=== PATIENT | male | born 1960 | race Caucasian/White ===

== ENCOUNTER → 2017-09-14 | Outpatient (CLI) | payer MEDICARE ==
[2015-10-28 12:43] VITALS: BMI 33.2
[~2017-09-14] MED LIST: AMLO2.5T75 PO; ASPI-1441 PO; ASPI-715 PO; CIT20 PO; CYCL10TA29 PO; DIA10 PO; DIA5 PO; DIAZ-308 PO; DOCU-416 PO; FLUO-202 PO; FLUO40CA76 PO; GABA-549 PO; HYDR12.558 PO; HYDR2TAB74 PO; LOR5/325 PO; METF-410 PO; METH-543 PO; METH4TAB66 PO; METO25TA93 PO; NO MEDS; ONDA4TAB PO; OXYC-373 PO; OXYC-865 PO; OXYC20TA86 PO; PER PO; PRAZ1CAP26 PO; PRO25 PO; PROM-110 PO; SERT-179 PO; SIMV10TA96 PO; TRAZ-133 PO; ZOLP-350 PO
--- NOTE | 2017-09-14 14:40 | RADIOLOGY IMAGING REPORT ---
FACILITY: [facility] PATIENT NAME: Ciro Manrique : 1960 MR: [id number] V: [id number] EXAM DATE: ORDERING PHYSICIAN: HARMONY HENDRICKSON TECHNOLOGIST: Location: [facility] Patient: Ciro Manrique : 1960 Visit/Account:[id number] Date of Sevice: 09/14/2017 EXAMINATION: CT head without IV contrast HISTORY: Blurry vision, headache, neck pain. COMPARISON: CT head from 05/28/2017. TECHNIQUE: Contiguous axial images were obtained from the skull base to the vertex without intraven ous contrast. Sagittal and coronal reformatted images are also submitted. One of the following dose optimization techniques was utilized in the performance of this exam: Autom ated exposure control; adjustment of the mA and/or kV according to the patient's size; or use of an i terative reconstruction technique. Specific details can be referenced in the facility's radiology C T exam operational policy. FINDINGS: Brain volume: Normal. Ventricles: Normal. Acute ischemic changes: None. Hemorrhage: No acute intracranial hemorrhage. Masses/edema: None. Escalante-white: Negative. White matter: Normal. Vessels: Calcified plaque of both carotid siphons. Extra-axial: Negative. Calvarium/scalp: Negative. Skull base/visualized face: Negative. Visualized sinuses/orbits: Negative. IMPRESSION: No intracranial mass lesion or hemorrhage. No CT evidence of acute infarct. Report Dictated By: Cassandra Hernandez MD at 09/14/2017 2:33 PM Report E-Signed By: Cassandra Hernandez MD at 09/14/2017 2:35 PM WSN:[id number]
--- NOTE | 2017-09-14 14:53 | RADIOLOGY IMAGING REPORT ---
FACILITY: [facility] PATIENT NAME: Ciro Manrique : 1960 MR: [id number] V: [id number] EXAM DATE: ORDERING PHYSICIAN: HARMONY HENDRICKSON TECHNOLOGIST: Location: [facility] [place] Patient: Ciro Manrique : 1960 Visit/Account:[id number] Date of Sevice: 09/14/2017 Exam type: CERVICAL SPINE 2 OR 3 VIEW History: Headache and neck pain x3 years Comparison: CT service spine December 20, 2015 Findings: C1 through C7 are identified with no evidence of acute fractures or subluxations. There is mild disc space narrowing at C5-6 and moderate to severe disc space narrowing at C6-7.. No evidence of prever tebral soft tissue swelling. Incidentally noted are calcifications in both sides of the neck, right side greater than left which are likely vascular in etiology IMPRESSION: 1. Mild disc space narrowing C5-6 and moderate to severe disc space narrowing C6-7 Calcifications are identified in both sides of the neck, right greater than left which are likely vas cular in etiology Report Dictated By: Raisa Thomas MD at 09/14/2017 2:44 PM Report E-Signed By: Raisa Thomas MD at 09/14/2017 2:47 PM WSN:[email or web address]
== END ==
LOC: CT 02:21
PROVIDERS: ATTEND Family Medicine
DX: H53.8 Other visual disturbances (principal); R51 Headache; M54.2 Cervicalgia
CPT/HCPCS: 70450; 72040

== ENCOUNTER → 2017-10-31 | Outpatient (CLI) | payer MEDICARE ==
[2015-10-28 12:43] VITALS: BMI 33.2
== END ==
LOC: LAB 14:13
PROVIDERS: ATTEND Family Medicine
DX: I10 Essential (primary) hypertension (principal); E78.5 Hyperlipidemia, unspecified; E11.65 Type 2 diabetes mellitus with hyperglycemia; R53.83 Other fatigue
CPT/HCPCS: 36415; 82040; 82247; 82310; 82374; 82435; 82565; 82947; 83036; 84075; 84132; 84155; 84295; 84443; 84450; 84460; 84520; 85027

== ENCOUNTER → 2017-11-09 | Outpatient (CLI) | payer MEDICARE ==
[2015-10-28 12:43] VITALS: BMI 33.2
[~2017-11-09] MED LIST changes: +IOPAMIDOL 76% 75 ML INFUS BTL 75 ML ONE
--- NOTE | 2017-11-09 14:13 | RADIOLOGY IMAGING REPORT ---
FACILITY: [facility] [place] PATIENT NAME: Ciro Manrique : 1960 MR: [id number] V: [id number] EXAM DATE: ORDERING PHYSICIAN: HARMONY HENDRICKSON TECHNOLOGIST: Location: [facility] [place] Patient: Ciro Manrique : 1960 Visit/Account:[id number] Date of Sevice: 11/09/2017 ABDOMEN/PELVIS WITH CONTRAST HISTORY: Right lower quadrant pain radiating posteriorly. Change in bowel movements, diabetic with elevated urine glucose levels TECHNIQUE: Following administration of IV contrast contiguous axial images acquired through the abdom en/pelvis. Coronal and sagittal reformatting also performed. CONTRAST: 75 mL Isovue-[id number] COMPARISON: CT abdomen pelvis March 08, 2016 FINDINGS: Visualized lung bases: There are two noncalcified pulmonary nodules in the anterior aspect right mid dle lobe largest measuring approximately 5 mm in diameter and appear unchanged when compared to the p rior CT was likely due to the difference in imaging technique. There is a small amount linear scarri ng also noted in the lower lobes. Hepatobiliary: There is hepatomegaly and diffuse hepatic steatosis Spleen: Negative. Adrenals: Negative. Pancreas: Negative. Kidneys ureters or bladder: There are subcentimeter hypodensities in both kidneys that are too small to characterize Genitalia: There are calcifications in the vas deferens bilaterally which can be seen with diabetes GI: There is diverticulosis left-sided colon although no CT evidence of acute diverticulitis. The a ppendix is visualized and does not appear inflamed Vessels/spaces/nodes: There shotty retroperitoneal lymph nodes. There are mild to moderate vascular calcifications throughout the abdomen and pelvis Bones/soft tissues: There are postsurgical changes from posterior lumbar interbody fusion of the low er lumbosacral spine Additional findings: None pertinent. IMPRESSION: There are two stable noncalcified pulmonary nodules in the right middle lobe Hepatomegaly with diffuse hepatic steatosis There are subcentimeter hypodensities in both kidneys that are too small to characterize. This could be further evaluated with ultrasound if of concern Diverticulosis left-sided colon although no CT evidence of acute diverticulitis The appendix is visualized and does not appear inflamed Additional chronic findings as described Report Dictated By: Raisa Thomas MD at 11/09/2017 1:03 PM Report E-Signed By: Raisa Thomas MD at 11/09/2017 2:09 PM WSN:[id number]
== END ==
LOC: CT 01:05
PROVIDERS: ATTEND Family Medicine
DX: N50.89 Other specified disorders of the male genital organs (principal); K57.30 Diverticulosis of large intestine without perforation or abscess without bleeding; I25.10 Atherosclerotic heart disease of native coronary artery without angina pectoris; Z98.890 Other specified postprocedural states; R91.8 Other nonspecific abnormal finding of lung field; K76.89 Other specified diseases of liver
CPT/HCPCS: 74177; Q9967

== ENCOUNTER → 2018-04-11 | Outpatient (CLI) | payer MEDICARE ==
[2015-10-28 12:43] VITALS: BMI 33.2
[~2018-04-11] MED LIST changes: -IOPAMIDOL 76% 75 ML INFUS BTL 75 ML ONE; -METF-410 PO; +METF-411 PO
[2018-04-11 11:12] LABS: LDL CHOLESTEROL 78 mg/dl
== END ==
LOC: LAB 09:44
PROVIDERS: ATTEND Family Medicine
DX: I10 Essential (primary) hypertension (principal); E78.5 Hyperlipidemia, unspecified; E11.65 Type 2 diabetes mellitus with hyperglycemia
CPT/HCPCS: 36415; 82043; 83036; G0103; 82040; 82247; 82310; 82374; 82435; 82465; 82565; 82947; 83718; 84075; 84132; 84153; 84155; 84295; 84450; 84460; 84478; 84520

== ENCOUNTER → 2018-06-07 | Outpatient (CLI) | payer MEDICARE, OTHER ==
[2015-10-28 12:43] VITALS: BMI 33.2
[~2018-06-07] MED LIST changes: -METF-411 PO; +METF-450 PO
--- NOTE | 2018-06-07 14:30 | RADIOLOGY IMAGING REPORT ---
FACILITY: [facility] PATIENT NAME: Ciro Manrique : 1960 MR: [id number] V: [id number] EXAM DATE: ORDERING PHYSICIAN: OZ SEWELL TECHNOLOGIST: Location: [facility] Patient: Ciro Manrique : 1960 Visit/Account:[id number] Date of Sevice: 06/07/2018 EXAMINATION: CT lumbar spine without IV contrast HISTORY: Low back pain. COMPARISON: MRI of the lumbar spine dated 07/16/2015 from [facility] TECHNIQUE: Axial images were obtained through the lumbar spine without IV contrast administration. C oronal and sagittal reformatted images were obtained from the axial source data. One of the following dose optimization techniques was utilized in the performance of this exam: Autom ated exposure control; adjustment of the mA and/or kV according to the patient's size; or use of an i terative reconstruction technique. Specific details can be referenced in the facility's radiology C T exam operational policy. FINDINGS: Alignment: Normal. Vertebral bodies: Negative. Posterior elements: Bilateral L4 and L5 laminectomies. There is bony fusion across the L4-5 and L5-S 1 facets. Hardware: There is posterior lumbar interbody fusion hardware at L3-4, and interbody fusion devices a t L4-5 and L5-S1. Bilateral transpedicular screws remain at S1. Abandoned screw tracks in the L5 ve rtebra. The hardware is similar in position to previous CT. There is slight lucency around the left transpedicular screw at L3 which is new. There is bony fusion across the L4-5 disc space, with some residual lucency at the L3-4 and L5-S1 disc spaces. Disc spaces: There is a mild disc bulge at L2-3. No focal disc herniation visualized by CT. Soft tissues: Negative. Visualized retroperitoneal/abdominal structures: Fatty liver partly visualized. There is severe athe rosclerotic calcifications. IMPRESSION: 1. Posterior lumbar interbody fusion from L3 through S1 with posterior decompression at L4-5 and L5- S1. Lucency around the left L3 transpedicular screw is new, and is concerning for loosening. No oth er evidence of hardware loosening. 2. Mild disc bulge at L2-3. Report Dictated By: Cassandra Hernandez MD at 06/07/2018 2:18 PM Report E-Signed By: Cassandra Hernandez MD at 06/07/2018 2:26 PM WSN:[id number]
== END ==
LOC: CT 00:31
PROVIDERS: ATTEND Orthopaedic Surgery
DX: K76.0 Fatty (change of) liver, not elsewhere classified (principal); Z96.7 Presence of other bone and tendon implants; M51.86 Other intervertebral disc disorders, lumbar region; I25.10 Atherosclerotic heart disease of native coronary artery without angina pectoris
CPT/HCPCS: 72131

== ENCOUNTER → 2018-06-25 | Outpatient (CLI) | payer OTHER, MEDICARE ==
[2015-10-28 12:43] VITALS: BMI 33.2
[2018-06-25 09:27] LABS: PLATELET COUNT, AUTOMATED 231 K/uL (150-450)
--- NOTE | 2018-06-25 09:32 | EKG ---
FACILITY: [facility] [place] PATIENT NAME: COLE JEAN BAPTISTE : [id number] MR: [id number] V: [id number] EXAM DATE: ORDERING PHYSICIAN: OZ SEWELL TECHNOLOGIST: AGA [place] Reason : PRE-OP Blood Pressure : / mmHG Vent. Rate : 077 BPM Atrial Rate : 077 BPM P-R Int : 172 ms QRS Dur : 086 ms QT Int : 382 ms P-R-T Axes : 064 055 064 degrees QTc Int : 432 ms Normal sinus rhythm Normal ECG When compared with ECG of 28-MAY-2017 15:01, No significant change was found Confirmed by JAX TEJEDA ([id number]) on 06/25/2018 10:13:01 AM Referred By: DONATO Confirmed By:JAX TEJEDA
== END ==
LOC: LAB 09:10
PROVIDERS: ATTEND Orthopaedic Surgery
DX: Z01.812 Encounter for preprocedural laboratory examination (principal); F33.9 Major depressive disorder, recurrent, unspecified; I10 Essential (primary) hypertension; G47.33 Obstructive sleep apnea (adult) (pediatric); Z99.81 Dependence on supplemental oxygen; E78.5 Hyperlipidemia, unspecified; K21.9 Gastro-esophageal reflux disease without esophagitis
CPT/HCPCS: 36415; 82040; 82247; 82310; 82374; 82435; 82565; 82947; 83036; 84075; 84132; 84155; 84295; 84450; 84460; 84520; 85025; 93005

== ENCOUNTER → 2018-07-09 | Outpatient (CLI) | payer OTHER, MEDICARE ==
[2015-10-28 12:43] VITALS: BMI 33.2
== END ==
LOC: LAB 10:03
PROVIDERS: ATTEND Family Medicine
DX: E11.65 Type 2 diabetes mellitus with hyperglycemia (principal)
CPT/HCPCS: 36415; 82947

== ENCOUNTER 2018-07-23 00:23 | Inpatient (IN) | payer MEDICARE, OTHER ==
[~2018-07-23] VITALS: Ht 188 cm; Wt 115.7 kg
[~2018-07-23 00:23] MED LIST changes: +METF500T4 PO; +SITA100T PO
[2018-07-23 05:20] VITALS: BP 143/89
[2018-07-23] MEDS ORDERED: METOPROLOL TART 50 MG TAB PO ONE (05:48)
[2018-07-23] MEDS ORDERED: ACETAMINOPHEN 500 MG TAB PO ONE (06:00)
[2018-07-23] MEDS ORDERED: CLINDAMYCIN(*) 900 MG/NS 50 ML 50 ML IVPB ONE (06:00)
[2018-07-23] MEDS ORDERED: MIDAZOLAM 2 MG/2 ML VIAL IVP PRN (06:00)
[2018-07-23] MEDS ORDERED: FAMOTIDINE 20 MG TAB PO ONE (06:00)
[2018-07-23] MEDS ORDERED: PREGABALIN 150 MG CAPSULE PO ONE (06:00)
[2018-07-23] MEDS ORDERED: LIDOCAINE/SOD BICARB 8.4% SYR ID ONE (06:00)
[2018-07-23] MEDS ORDERED: NORMOSOL R SOLN(*) 1000 ML BAG 1,000 ML IV PRN (06:00)
[2018-07-23] MEDS ORDERED: ROPIVACAINE 0.2% 20 ML VIAL ONE (06:27)
[2018-07-23] MEDS ORDERED: THROMBIN (BOVINE) 20,000 UNIT VIAL ONE (06:27)
[2018-07-23] MEDS ORDERED: INSULIN HUM REG 100 UN/ML 3 ML VIAL SC ONE ×2 (06:55→10:05)
[2018-07-23] MEDS ORDERED: REMIFENTANIL HCL 1 MG VIAL ONE (06:55)
[2018-07-23] MEDS ORDERED: ROCURONIUM BROM 10 MG/ML 10 ML ONE (07:24)
[2018-07-23] MEDS ORDERED: SUGAMMADEX SOD 500 MG/5 ML SDV ONE (07:41)
[2018-07-23] MEDS ORDERED: HYDROmorphone HCL 2 MG/ML SDV ONE ×2 (08:21→10:09)
[2018-07-23] MEDS ORDERED: PROPOFOL EMUL(*) 10MG/ML 20 ML 160 ML ONE (08:53)
[2018-07-23] MEDS ORDERED: ONDANSETRON 4 MG/2 ML VIAL ONE (08:53)
[2018-07-23] MEDS ORDERED: METOPROLOL TART 5 MG/5 ML VIAL ONE (08:54)
--- NOTE | 2018-07-23 09:38 | RADIOLOGY IMAGING REPORT ---
FACILITY: [facility] [place] PATIENT NAME: Ciro Manrique : 1960 MR: [id number] V: [id number] EXAM DATE: ORDERING PHYSICIAN: OZ SEWELL TECHNOLOGIST: Location: [facility] [place] Patient: Ciro Manrique : 1960 Visit/Account:[id number] Date of Sevice: 07/23/2018 LUMBAR SPINE 1 VIEW HISTORY: L3-4 REVISION PLIF WITH HARDWARE REMOVAL COMPARISON: CT examination from June 07. FINDINGS: Anatomic alignment status post fusion hardware posteriorly at L3-L4. Spacers are noted at L3-L4, L4- L5 and L5-S1. Previous sequelae of effusion through S1. Screws remain in S1 vertebra. No evidence of hardware competition or acute bony finding. IMPRESSION: Appropriate appearance fusion hardware status post posterior fusion L3-L4. No evidence of acute osse ous finding or hardware convocation. Stable sequelae of old lumbosacral fusion. Report Dictated By: Kirk Mckeon MD at 07/23/2018 9:30 AM Report E-Signed By: Kirk Mckeon MD at 07/23/2018 9:33 AM WSN:[id number]
[2018-07-23] MEDS ORDERED: LR(*) 1000 ML BAG 1,000 ML IV PRN (09:45)
[2018-07-23] MEDS ORDERED: diphenhydrAMINE 25 MG CAP PO PRN (09:45)
[2018-07-23] MEDS ORDERED: ACETAMINOPHEN 500 MG TAB PO PRN (09:45)
[2018-07-23] MEDS ORDERED: BENZOCAINE/MENTHOL 1 EACH LOZG PO PRN (09:45)
[2018-07-23] MEDS ORDERED: ACETAMINOPHEN(*)1000 MG/100 ML 100 ML IVPB PRN (09:45)
[2018-07-23] MEDS ORDERED: BISACODYL 10 MG SUPP PR PRN (09:45)
[2018-07-23] MEDS ORDERED: FLUSH 10 ML SYR IVP PRN (09:45)
[2018-07-23] MEDS ORDERED: ONDANSETRON 4 MG/2 ML VIAL IVP PRN (09:45)
[2018-07-23] MEDS ORDERED: MAGNESIUM HYDROXIDE* 30ML UDCP PO PRN (09:45)
[2018-07-23] MEDS ORDERED: fentaNYL CITR 100 MCG/2 ML AMP ONE (09:46)
[2018-07-23] MEDS: HYDROmorphone HCL 2 MG/ML SDV IVP PRN ×3 (10:17→19:09)
--- NOTE | 2018-07-23 10:28 | OPERATIVE REPORT 1 ---
EVENT DATE: July 23, 2018 SURGEON: Xu Smith MD ANESTHESIOLOGIST: Chacho Miller M.D. ANESTHESIA: General endotracheal anesthesia. SAMPLE DISPLAY PREPARER: Umang Delgado PA-C PREOPERATIVE DIAGNOSIS L3-L4 fusion nonunion. POSTOPERATIVE DIAGNOSIS L3-L4 fusion nonunion. PROCEDURE PERFORMED Revision L3-L4 posterior lateral instrumented fusion with exploration of fusion mass and placement of pedicle screw construct. INTRAVENOUS FLUIDS 1350 mL ESTIMATED BLOOD LOSS 120 mL IMPLANTS USED 1. 7.5 mm x 45 mm Reline pedicle screws from [employer] x4. 2. 5 mm x 40 mm connecting rods from [employer] x2. 3. Locking caps from [employer] x4. SPECIMENS None. DRAINS None. COMPLICATIONS None. DISPOSITION Post-Anesthesia Care Unit. INDICATIONS FOR SURGERY Mr. Manrique is a 58-year-old gentleman who about two years ago underwent an L3- L4 minimally invasive lateral fusion with percutaneous pedicle screw placement performed by Dr. Rooney. He initially did well after that surgery but then began experiencing progressively worsening lower back pain but really not much radiating leg symptoms. He presented to my clinic with these symptoms and we reviewed x-rays that showed some lucency at the L3-L4 level, suggestive of a nonunion. We, therefore, went ahead and sent him for a CT scan, which did not show more than one successive cut on coronal or sagittal images with bridging trabeculi. 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 He had failed nonsurgical care and, therefore, wished to proceed with surgery. Prior to surgery, I explained in detail to the patient the possible risks of surgery. These risks include bleeding, infection, damage to surrounding structures, nerve root injury, spinal fluid leak, meningitis, persistent and/or worsening pain, need for further surgery, , blindness, sexual dysfunction, autonomic nervous system dysfunction and other unforeseen medical and surgical complications. An understanding that spinal surgery is more predictive at improving extremity discomfort than axial spine pain was stressed. Further discussion was had regarding the revision nature of the procedure. I explained to Mr. Manrique that all pertinent risks are higher given the presence of scar tissue including bleeding, infection, etc. We also discussed the fact that revision surgery is very rarely as reliable at achieving expected outcomes as initial surgery. DESCRIPTION OF PROCEDURE On the date of surgery, the patient was met in the preoperative hold area and all questions were answered. The operative site was identified and marked by myself. The patient was brought in good condition to the operating room and after succumbing to anesthesia was positioned in the prone position on a Fermin table. All bony protuberances and soft tissues were well padded in the standard fashion. Care was taken to maintain appropriate perfusion pressures during anesthesia. Preoperative antibiotics were administered according to the appropriate timing schedule. At the conclusion of the procedure, sponge and needle counts were correct x2. A final time-out was undertaken by members of the operating team to confirm correct patient, correct levels and correct surgery. The patient was then prepped and draped in the standard sterile orthopedic fashion a midline incision was made over intended surgical levels. Sharp dissection was carried out down to the posterior elements and soft tissue were elevated off the posterior elements in a subperiosteal manner. We worked our way out laterally to expose the pedicle screw construct on both sides. Self-retaining retractors were placed and then the appropriate instrumentation was used to remove first the caps, then the rods and finally the screws bilaterally at L3 and L4. We were then able to expose out to the tips of the transverse processes bilaterally at L3 and L4. New screws, size 7.5 x 44 mm, were placed in all four pedicles. 40 mm rods were selected and placed within the tulips and then locking caps were placed and tightened in the L3 screws. The wound was then irrigated with 2- liter of sterile saline solution and I then used a high-speed bur to decorticate the previously exposed transverse processes of L3 and L4 bilaterally as well as to drill down within the L3-L4 face bilaterally. We then packed a combination of demineralized bone matrix and cancellous chips into those lateral gutters overlying the transverse processes as well as overlying and within the facet joints. Of note, prior to placement of grafting material, I did explore the fusion mass and I was able to detect movement at that L3-L4 level. Once we had packed all of the bone graft in place within the facet joints as well as in the lateral gutters, we loosened the cap from the L4 screw and used the compression device to compress across the construct. The final cloth examiner was then used to torque all of the caps the appropriate torque pressure. The wound was then closed in layers using interrupted sutures for the deep fascia, inverted interrupted sutures for the subcutaneous tissue and then a running subcutaneous skin stitch. Sponge and needle counts were correct x2. Electrophysiologic monitoring was used during the case and it was used to test the screws once they were replaced and they all tested greater than 30 milliamps. POSTOPERATIVE CARE PLAN Mr. Manrique will remain in the hospital until he meets discharge criteria. He will be discharged home with instructions to follow up in two weeks or so for a wound check and examination. THONG
[2018-07-23 11:15] VITALS: BP 151/80
[2018-07-23] MEDS ORDERED: HYDR-2966 PO (11:27)
[2018-07-23] MEDS ORDERED: SIMV5TAB60 PO (11:27)
[2018-07-23] MEDS ORDERED: GABA-549 PO (11:27)
[2018-07-23] MEDS ORDERED: METO50TA19 PO (11:27)
[2018-07-23] MEDS ORDERED: METF-452 PO (11:27)
[2018-07-23 11:30] VITALS: BP 144/90
[2018-07-23] MEDS: oxyCODONE HCL 5 MG CAP PO PRN ×2 (11:37→20:44)
--- NOTE | 2018-07-23 11:58 | Hospitalist Consultation ---
History of Present Illness Requesting Physician Dr. Smith Reason for Consult Medical Management Chief Complaint s/p lumbar fusion History of Present Illness He was admitted s/p lumbar fusion. It is reported the surgery went well and without complication. History Problems: (1) Hypertension Status: Chronic (2) Depression Status: Chronic (3) Hyperlipidemia Status: Chronic (4) Type II diabetes mellitus Status: Chronic Home Meds Active Scripts Hydrocodone Bit/Acetaminophen (HYDROCODON-ACETAMINOPHEN 5-325) 1 Each Tablet, 1 EACH PO Q4-6H for PAIN, #10 TAB Prov:TANIKA GUZMÁN DO 03/08/16 Reported Medications Gabapentin (GABAPENTIN) 300 Mg Capsule, 300 MG PO TID, CAPSULE 07/23/18 Metoprolol Succinate (METOPROLOL SUCCINATE) 50 Mg Tab.er.24h, 1 TAB PO QDAY, TAB 07/23/18 Metformin Hcl (METFORMIN HCL) 1,000 Mg Tablet, 1 TAB PO BID, TAB 07/23/18 Simvastatin (SIMVASTATIN) 5 Mg Tablet, 5 MG PO QDAY, TAB 07/23/18 Hydrochlorothiazide (HYDROCHLOROTHIAZIDE) 25 Mg Tablet, 1 TAB PO QDAY, TAB 07/23/18 Sitagliptin Phosphate (JANUVIA) 100 Mg Tablet, 100 MG PO QDAY 07/16/18 Fluoxetine Hcl (PROZAC) 20 Mg Capsule, 60 MG PO QDAY, CAPSULE 07/14/15 Trazodone Hcl (Trazodone Hcl) 100 Mg Tablet, 500 MG PO QPM 09/24/12 Discontinued Reported Medications Metformin Hcl (METFORMIN HCL ER) 500 Mg Tab.er.24, 250 MG PO BID, TAB 07/16/18 Simvastatin (ZOCOR) 10 Mg Tablet, 10 MG PO HS, TAB 05/28/17 Hydrochlorothiazide (Hydrochlorothiazide) 12.5 Mg Capsule, 25 MG PO DAILY 11/30/11 Metoprolol Tartrate (Metoprolol Tartrate) 25 Mg Tablet, 50 MG PO QDAY 11/30/11 Promethazine Hcl (PROMETHAZINE HCL) 25 Mg Tablet, 25 MG PO Q6H, TAB 05/28/17 Diazepam (DIAZEPAM) 5 Mg Tablet, 5 MG PO HS, #40 TAB 10/29/15 Metformin Hcl (METFORMIN HCL) 500 Mg Tablet, 250 TAB PO QDAY, TAB 10/20/15 Discontinued Scripts Methocarbamol (ROBAXIN-750) 750 Mg Tablet, 1 TAB PO TID for muscle spasm relief, #20 Prov:JESSE GARZON DO 11/19/16 Cyclobenzaprine Hcl (CYCLOBENZAPRINE HCL) 10 Mg Tablet, 10 MG PO TID for Muscle Relaxant, #21 TAB Prov:TANIKA GUZMÁN DO 03/08/16 Cyclobenzaprine Hcl (CYCLOBENZAPRINE HCL) 10 Mg Tablet, 10 MG PO TID PRN for MUSCLE SPASMS, #30 TAB Prov:GRACIELA MORENO INJECTION SPECIALIST 09/22/15 Allergies: Coded Allergies: Penicillins (Verified Allergy, Mild, 11/18/16) Patient History: Cardiac arrest FATHER, FH: Alzheimers disease MOTHER, FH: stroke BROTHER OR SISTER Hx Smoking: Yes (QUIT 10/2009) Smoking Status: Former Smoker Caffeine Intake: Coffee, Soda Caffeine/Cups Per Day: 1 CUP WEEKLY, SODA OCC Hx Alcohol Use: No Hx Substance Use Disorder: No (ALCOHOL, TOBACCO) Social Drug Use: Never History of IV Drug Use: No Review of Systems All Systems Reviewed/Normal: Yes, Except as Noted Musculoskeletal: Pain (low back pain) Exam Vital Signs Vital Signs Date Time Temp Pulse Resp B/P (MAP) Pulse Ox O2 Delivery O2 Flow Rate FiO2 07/23/18 11:30 82 144/90 (108) 91 07/23/18 11:11 Nasal Cannula 1.0 07/23/18 11:05 98.4 16 General Appearance: Alert, Awake, No Acute Distress, Afebrile Neuro: No Gross deficits Cardiovascular: Regular Rate and Rhythm Respiratory: No Respiratory Distress, Clear to Auscultation Psych: Alert & Oriented X3, Appropriate Mood & Affect Assessment and Plan Problems: (1) S/P lumbar fusion Status: Acute Assessment & Plan: Followed by Dr. Smith (2) Hypertension Status: Chronic Assessment & Plan: He is on chronic treatment with Metoprolol Succinate and Hydrochlorothiazide. These have been restarted with hold parameters. (3) Type II diabetes mellitus Status: Chronic Assessment & Plan: He is on chronic treatment with Metformin and Januvia. These medications will resume tomorrow when he resume his usual diet. He will be covered with SS insulin #2, AC/HS blood glucose checks and ADA diet. (4) Hyperlipidemia Status: Chronic Assessment & Plan: He is on chronic treatment with Simvastatin. (5) Depression Status: Chronic Assessment & Plan: He is on chronic treatment with Fluoxetine and Trazodone. Venous Thromboembolism Antithrombotics Is Pt On Any Antithrombotics?: No Prophylaxis Tx Contraindicated Pharmacological Contraindicati: Surgical Contraindication Exam Sepsis Risk: No Definite Risk Problem Qualifiers (1) Hypertension: Hypertension type: essential hypertension Qualified Codes: I10 - Essential (primary) hypertension RON SONG INJECTION SPECIALIST Jul 23, 2018 11:58
[2018-07-23] MEDS: GABAPENTIN 300 MG CAP PO SCH ×2 (14:24→20:44)
[2018-07-23] MEDS: DIAZEPAM 5 MG TAB PO PRN (16:21)
[2018-07-23] MEDS: CLINDAMYCIN 900 MG/D5W 50 ML 50 ML IVPB SCH (16:56)
[2018-07-23] MEDS: APAP/HYDROCODONE 325/5 TAB PO PRN ×2 (17:15→21:33)
[2018-07-23] MEDS: INSULIN HUM LISPRO 100 UN/ML 3 ML VIAL SUBQ PRN ×2 (17:15→20:47)
[2018-07-23 19:28] VITALS: BP 131/96
[2018-07-23] MEDS: DOCUSATE SODIUM 100 MG CAP PO SCH (20:44)
[2018-07-23] MEDS ORDERED: traZODone HCL 50 MG TAB PO SCH (21:00)
[2018-07-24] MEDS: oxyCODONE HCL 5 MG CAP PO PRN ×4 (00:40→12:39)
[2018-07-24] MEDS: CLINDAMYCIN 900 MG/D5W 50 ML 50 ML IVPB SCH ×2 (00:40→08:58)
[2018-07-24] MEDS: DIAZEPAM 5 MG TAB PO PRN ×2 (00:40→06:38)
[2018-07-24 00:44] VITALS: BP 113/63
[2018-07-24] MEDS: APAP/HYDROCODONE 325/5 TAB PO PRN ×2 (04:20→10:57)
[2018-07-24 04:25] VITALS: BP 147/82
[2018-07-24 06:55] VITALS: BP 140/80
[2018-07-24] MEDS: INSULIN HUM LISPRO 100 UN/ML 3 ML VIAL SUBQ PRN ×2 (08:04→11:59)
[2018-07-24] MEDS: DOCUSATE SODIUM 100 MG CAP PO SCH (08:56)
[2018-07-24] MEDS: GABAPENTIN 300 MG CAP PO SCH ×2 (08:57→14:36)
[2018-07-24] MEDS ORDERED: FLUoxetine HCL 20 MG CAP PO SCH (09:00)
[2018-07-24] MEDS ORDERED: METOPROLOL SUCC XL 50 MG TABCR 50 MG TAB.ER.24H PO SCH (09:00)
[2018-07-24] MEDS ORDERED: HYDROCHLOROTHIAZIDE 25 MG TAB PO SCH (09:00)
[2018-07-24] MEDS ORDERED: metFORMIN HCL 500 MG TAB PO SCH (09:00)
[2018-07-24] MEDS ORDERED: SIMVASTATIN 20 MG TAB PO SCH (09:00)
--- NOTE | 2018-07-24 09:23 | Hospitalist Progress Note ---
Subjective Progress Notes Subjective He has no complaints this morning. He had no acute events overnight. Patient Complains of: Cardiovascular: No: Chest Pain Respiratory: No: Shortness of Breath Physical Exam Vital Signs Date Time Temp Pulse Resp B/P (MAP) Pulse Ox O2 Delivery O2 Flow Rate FiO2 07/24/18 06:55 99.4 93 16 140/80 (100) 95 Nasal Cannula 3.0 Intake and Output 07/23/18 23:59 Intake Total 5670 ml Output Total 120 ml Balance 5550 ml Intake Oral 1520 ml IV Total 2100 ml Other 2050 ml Output Estimated Blood Loss 120 ml # Voids 2 General Appearance: Alert, Awake, No Acute Distress, Afebrile Neuro: No Gross deficits Cardiovascular: Regular Rate and Rhythm Respiratory: No Respiratory Distress, Clear to Auscultation Psych: Alert & Oriented X3, Appropriate Mood & Affect Assessment and Plan Problems: (1) S/P lumbar fusion Status: Acute Assessment & Plan: Followed by Dr. Smith (2) Hypertension Status: Chronic Assessment & Plan: He is on chronic treatment with Metoprolol Succinate and Hydrochlorothiazide. These have been restarted with hold parameters. (3) Type II diabetes mellitus Status: Chronic Assessment & Plan: He is on chronic treatment with Metformin and Januvia. These medications will resume today. He will be covered with SS insulin #2, AC/HS blood glucose checks and ADA diet. (4) Hyperlipidemia Status: Chronic Assessment & Plan: He is on chronic treatment with Simvastatin. (5) Depression Status: Chronic Assessment & Plan: He is on chronic treatment with Fluoxetine and Trazodone. Exam Sepsis Risk: No Definite Risk Problem Qualifiers (1) Hypertension: Hypertension type: essential hypertension Qualified Codes: I10 - Essential (primary) hypertension RON SONG PRODUCT INTRODUCTION MANAGER Jul 24, 2018 09:23
[2018-07-24 12:08] VITALS: BP 128/79
[2018-07-24 16:30] VITALS: Ht 188 cm; Wt 115.7 kg
[2018-07-24] MEDS ORDERED: LOR5/325 PO (16:50)
[2018-07-24] MEDS ORDERED: DOCU240C84 PO (16:50)
[2018-07-24] MEDS ORDERED: DIA5 PO (16:51)
== END 2018-07-24 18:25 | disposition home health service (06) | DRG 460 ==
LOC: OR 00:23 → MED 11:05
PROVIDERS: ADMIT Orthopaedic Surgery; ATTEND Orthopaedic Surgery
PROC: 0SG0071 Fusion of Lumbar Vertebral Joint with Autologous Tissue Substitute, Posterior Approach, Posterior Column, Open Approach (ICD-10-PCS; principal; 2018-07-23 07:03)
PROC: 0SP00AZ Removal of Interbody Fusion Device from Lumbar Vertebral Joint, Open Approach (ICD-10-PCS; 2018-07-23 07:03)
DX: M96.0 Pseudarthrosis after fusion or arthrodesis (principal); I10 Essential (primary) hypertension; K21.9 Gastro-esophageal reflux disease without esophagitis; E11.9 Type 2 diabetes mellitus without complications; E78.5 Hyperlipidemia, unspecified; F32.9 Major depressive disorder, single episode, unspecified; Z79.84 Long term (current) use of oral hypoglycemic drugs; Z88.0 Allergy status to penicillin
CPT/HCPCS: 36415; 36416; 72020; 82948; 86850; 86900; 86901; 97161; C1713; J1170; J1815; J2250; J2405; J2704; J2795; J3010; J3490

== ENCOUNTER → 2018-12-19 | Outpatient (CLI) | payer MEDICARE ==
[2018-07-24 16:30] VITALS: BMI 32.7
[~2018-12-19] MED LIST changes: +DOCU240C84 PO; +HYDR-2966 PO; +METF-452 PO; +METO50TA19 PO; +SIMV5TAB69 PO
[2018-12-19 11:12] LABS: LDL CHOLESTEROL 72 mg/dl
== END ==
LOC: LAB 10:34
PROVIDERS: ATTEND Family Medicine
DX: E78.5 Hyperlipidemia, unspecified (principal); I10 Essential (primary) hypertension; E11.65 Type 2 diabetes mellitus with hyperglycemia
CPT/HCPCS: 36415; 82040; 82043; 82247; 82310; 82374; 82435; 82465; 82565; 82947; 83036; 83718; 84075; 84132; 84155; 84295; 84450; 84460; 84478; 84520

== ENCOUNTER → 2018-12-27 | Outpatient (CLI) | payer MEDICARE ==
[2018-07-24 16:30] VITALS: BMI 32.7
[~2018-12-27] MED LIST changes: +TRAM-420 PO
[2018-12-27 14:19] LABS: PLATELET COUNT, AUTOMATED 244 K/uL (150-450)
--- NOTE | 2018-12-27 17:13 | EKG ---
FACILITY: [facility] [place] PATIENT NAME: COLE JEAN BAPTISTE : [id number] MR: [id number] V: [id number] EXAM DATE: ORDERING PHYSICIAN: STEVE RIVERA TECHNOLOGIST: TING Test Reason : PRE OP CLEARANCE Blood Pressure : / mmHG Vent. Rate : 082 BPM Atrial Rate : 082 BPM P-R Int : 176 ms QRS Dur : 084 ms QT Int : 386 ms P-R-T Axes : 044 -06 033 degrees QTc Int : 450 ms Normal sinus rhythm Normal ECG When compared with ECG of 25-JUN-2018 09:22, Questionable change in QRS axis Confirmed by MILAGROS MOULTON ([id number]) on 01/02/2019 12:25:28 PM Referred By: NICOLE Confirmed By:MILAGROS MOULTON
== END ==
LOC: LAB 13:31
PROVIDERS: ATTEND Surgery
DX: E11.9 Type 2 diabetes mellitus without complications (principal); G47.30 Sleep apnea, unspecified
CPT/HCPCS: 36415; 85025

== ENCOUNTER 2019-01-25 03:28 | Day surgery (SDC) | payer MEDICARE ==
[2018-07-24 16:30] VITALS: Ht 188 cm; Wt 106.1 kg
[~2019-01-25] VITALS: Ht 188 cm; Wt 106.1 kg
[~2019-01-25 03:28] MED LIST changes: +ACET500T68 PO; +CYAN1TAB68 PO; +MULT-768 PO; +OMEP-218 PO
[2019-01-25] MEDS ORDERED: GLYCOPYRROLATE 0.2MG/ML 1 ML INJ IVP ONE (07:10)
[2019-01-25 08:16] VITALS: BP 139/83
[2019-01-25] MEDS ORDERED: LIDOCAINE/SOD BICARB 8.4% SYR ID ONE (08:30)
[2019-01-25] MEDS ORDERED: NORMOSOL R SOLN(*) 1000 ML BAG 1,000 ML IV PRN (08:30)
[2019-01-25 09:56] VITALS: BP 106/54
[2019-01-25 10:30] VITALS: BP 110/57
--- NOTE | 2019-01-25 10:34 | Short(Outpt) Discharge Summary ---
Discharge Summary Reason for Hosp/Final Diag: (1) Diarrhea Hospital Course & Plan: pt presented for egd and colonoscopy. he tolerated the procedure well. he will be discharged home when criteria met. Departure Discharge to: Home Discharge Instructions Home Meds Reported Medications Multivitamin/Iron/Folic Acid (CENTRUM COMPLETE MULTIVIT TAB) 1 Each Tablet, 1 EACH PO QDAY 01/18/19 Cyanocobalamin/Folic Acid (VITAMIN H36-GDVBP ACID TABLET) 1 Each Tablet, 1 EACH PO QDAY 01/18/19 Acetaminophen (TYLENOL EXTRA STRENGTH) 500 Mg Tablet, 2000 MG PO QDAY, TAB 01/18/19 Omeprazole Magnesium (PRILOSEC OTC) 20 Mg Tablet.dr, 2 TAB PO QDAY, TAB 01/18/19 Metoprolol Succinate (METOPROLOL SUCCINATE) 50 Mg Tab.er.24h, 1 TAB PO QDAY, TAB 07/23/18 Metformin Hcl (METFORMIN HCL) 1,000 Mg Tablet, 1 TAB PO BID, TAB 07/23/18 Simvastatin (SIMVASTATIN) 5 Mg Tablet, 5 MG PO QDAY, TAB 07/23/18 Hydrochlorothiazide (HYDROCHLOROTHIAZIDE) 25 Mg Tablet, 1 TAB PO QDAY, TAB 07/23/18 Fluoxetine Hcl (PROZAC) 20 Mg Capsule, 60 MG PO QDAY, CAPSULE 07/14/15 Trazodone Hcl (Trazodone Hcl) 100 Mg Tablet, 500 MG PO QPM 09/24/12 Discontinued Reported Medications Tramadol Hcl (TRAMADOL HCL) 50 Mg Tablet, 50-100 MG PO Q4-6H, TAB 12/27/18 Sitagliptin Phosphate (JANUVIA) 100 Mg Tablet, 100 MG PO QDAY 07/16/18 Diet: Regular Activity: As Tolerated Special Instructions: we will call you in 10 days with biopsy results. STEVE RIVERA Jan 25, 2019 10:34
[2019-01-25 11:00] VITALS: BP 134/78
[2019-01-25 11:08] VITALS: BP 136/89
[2019-01-25 11:10] VITALS: BP 136/85
--- NOTE | 2019-01-25 11:38 | NUR ---
0956- PT. RECEIVED FROM OR VIA STRETCHER WITH THE SIDERAILS UP. SBAR RECEIVED FROM LESTER LANDA RN AND DR. TRAVIS. SEE ADMISSIONS ASSESSMENT. 1000- PT. O2 TURNED DOWN TO 4LPM. 1030- PT. AWAKE AND RETURNED TO ROOM AIR. 1035- FRIEND SHREE BROUGHT TO THE BEDSIDE. 1100- DR. RIVERA AT BEDSIDE. 1108- PT. STATES THAT HE IS READY TO GO HOME SO ORTHOSTATICS PREFORMED. 1112- PT. GETTING DRESSED. 1120- IV TAKEN OUT WITH CATH INTACT AND PRESSURE DRESSING APPLIED. 1125- DISCHARGE INSTRUCTIONS GONE OVER WITH PT. AND FRIEND. UNDERSTANDING STATED AND ALL QUESTIONS ANSWERED. 1130- PT. ACCOMPANIED OUT TO [facility]. SEE DISCHARGE ASSESSMENT.
== END 2019-01-25 11:30 | disposition home health service (06) ==
LOC: OR 03:28
PROVIDERS: ATTEND Surgery
DX: K29.70 Gastritis, unspecified, without bleeding (principal); K44.9 Diaphragmatic hernia without obstruction or gangrene; K29.80 Duodenitis without bleeding; R10.84 Generalized abdominal pain; K63.5 Polyp of colon; K57.30 Diverticulosis of large intestine without perforation or abscess without bleeding; K64.8 Other hemorrhoids
CPT/HCPCS: 00813; 36416; 43239; 45385; 82948; 87077; 88305; 88313; 88342; J3490